=== PATIENT | male | born 1980 | race Caucasian/White ===

== ENCOUNTER 2017-07-10 10:10 | Emergency (ER) | payer BC ==
[~2017-07-10] VITALS: Ht 172.7 cm; Wt 83.0 kg
[2017-07-10 12:28] VITALS: BP 128/71
== END 2017-07-10 12:00 | disposition home or self-care (01) ==
LOC: ED 10:10
DX: S97.82XA Crushing injury of left foot, initial encounter (principal); X58.XXXA Exposure to other specified factors, initial encounter; Y93.89 Activity, other specified; Y99.8 Other external cause status; Y92.89 Other specified places as the place of occurrence of the external cause